=== PATIENT | male | born 1980 | race Caucasian/White ===

== ENCOUNTER 2017-02-04 13:46 | Emergency (ER) | payer SELFPAY ==
--- NOTE | 2017-02-04 14:30 | RAD ---
LEFT RIBS THREE VIEWS: History: Injury one week ago, persistent left sided pain. Comparison: None. FINDINGS: No fracture. No cortical irregularity. No periosteal reaction. IMPRESSION: No fracture. POS: [facility]
[2017-02-04] MEDS ORDERED: Ketorolac Tromethamine 30 MG/ML VIAL ONE (14:48)
[2017-02-04] MEDS ORDERED: HYDROcodone/Acetaminophen 10/325 mg Tablet ONE (15:01)
[2017-02-04] MEDS ORDERED: Acetaminophen 650 MG/20.3 ML UDCUP ONE ×2 (16:13)
== END 2017-02-04 15:24 | disposition home or self-care (01) ==
LOC: ERS 13:46
DX: S20.212A Contusion of left front wall of thorax, initial encounter (principal); W21.01XA Struck by football, initial encounter; Y93.61 Activity, american tackle football
CPT/HCPCS: 96372; J1885